=== PATIENT | female | born 1985 | race Caucasian/White ===

== ENCOUNTER 2019-05-19 12:02 | Inpatient (IN) | payer MEDICARE, OTHER ==
[2019-05-19 13:00] VITALS: BMI 16.0
--- NOTE | 2019-05-19 15:23 | HP ---
COWS - Scale Resting Pulse: 2= [place] 101-120 Sweatin=Flushed/Facial Moisture Restless Observation: 1= Difficult to Sit Still Pupil Size: 1= Pupils >than Normal Bone or Joint Aches: 2= Severe Diffuse Aches Runny Nose/ Eye Tearin= Nasal Congestion GI Upset > 30mins: 2= Nausea/Diarrhea Tremor Observation: 1= Tremor [place], Not Seen Yawning Observation: 2= >3x During Session Anxiety or Irritability: 2=Irritable/Anxious Goose Flesh Skin: 0=Smooth Skin (moderate withdrawal, getting worse) COWS Score: 16 CIWA Score - Admission Criteria OASAS Guidelines: Admission for Medically Managed Detox: Requires at least one of the followin. CIWA greater than 12 2. Seizures within the past 24 hours 3. Delirium tremens within the past 24 hours 4. Hallucinations within the past 24 hours 5. Acute intervention needed for co occurring medical disorder 6. Acute intervention needed for co occurring psychiatric disorder 7. Severe withdrawal that cannot be handled at a lower level of care (continued vomiting, continued diarrhea, abnormal vital signs) requiring intravenous medication and/or fluids 8. Patient presents the following: Acute intervention needed for co-occurring med or psych disorder (Patient homeless, significant opiate withdrawal, COWS 16) Admission Criteria Met: Admission criteria met Admitting History and Physical - Primary Care Physician PCP: frederic hsieh ([place]) - Admission Chief Complaint: Heroin and cocaine use out of control, needs help History of Present Illness: Patient is a 34 y/o female, hx of drug use in the past, never been to detox or rehab. Had been able to control drug use and even stop, but since August, she has been using cocaine and heroin daily, out of control. Now lost weight from 112 to 88 pounds since August, typically 3-10 bags per day. Was off drugs for 10 years after 2008, but now relapsed. Has no stable housing. Also has MS and fobromyalgia. Currently feels quite ill with nausea, chills, aches, agitation. Needs admit for detox, is homeless and has multiple medical comorbidities. History Source: Patient Limitations to Obtaining History: No Limitations - Past Medical History Additional Past Medical History: fibromyalgia MS, on ocrevus, last does was January, next due July, no signif. neuro deficits , neurologist Sergio Rey genital herpes on valtrex osteoporosis - Past Surgical History Past Surgical History: Yes: Tonsillectomy - Advance Directives Advance Directives: No: Living Will, Health Care Proxy, DNR, Organ Donor, Tissue Donor, MOLST - Smoking History Smoking history: Current every day smoker Have you smoked in the past 12 months: Yes Aproximately how many cigarettes per day: 20 - Alcohol/Substance Use Hx Alcohol Use: No History of Substance Use: reports: Cocaine, Heroin, Marijuana Date of Last Use: 05/19/19 - Social History Usual Living Arrangement: Yes: Other (lives with friends at times, no stable housing) Do you think of yourself as: Lennon, Lesbian or Homosexual ADL: Independent Occupation: unemployed History of Recent Travel: No Other Social History: no family supports Admission ROS S - HPI Allergies/Adverse Reactions: Allergies Allergy/AdvReac Type Severity Reaction Status Date / Time gabapentin [From Neurontin] Allergy Mild Hives Verified 05/19/19 12:51 lamotrigine [From Lamictal] Allergy Mild Hives Verified 05/19/19 12:50 - Ebola screening Have you traveled outside of the country in the last 21 days: No - Review of Systems Constitutional: See HPI, Chills, Diaphoresis, Loss of Appetite EENT: reports: See HPI Respiratory: reports: Cough. denies: SOB with Exertion, SOB at Rest Cardiac: denies: Chest Pain, Syncope GI: reports: Diarrhea, Nausea : reports: See HPI, Other (genital herpes on valtrex ppx) Musculoskeletal: reports: Back Pain, Joint Pain, Muscle Pain Integumentary: reports: Bruising (fell asleep on the toilet while on heroin and bumped forehead 3 days ago, has mild headache, no visual change or vomiting). denies: Rash Neuro: reports: Numbness, Tremors, Weakness Endocrine: reports: Excessive Sweating, Intolerance to Cold, Unexplained Weight Loss (weight loss due to excessive cocaine use for 10 months) Psychiatric: reports: Agitated, Anxious, Depressed Other Systems: Reviewed and Negative Patient History - Patient Medical History Hx Anemia: No Hx Asthma: Yes Hx Chronic Obstructive Pulmonary Disease (COPD): No Hx Cancer: No Hx Cardiac Disorders: No Hx Congestive Heart Failure: No Hx Hypertension: No Hx Hypercholesterolemia: No Hx Pacemaker: No HX Cerebrovascular Accident: No Hx Seizures: No Hx Dementia: No Hx Diabetes: No Hx Gastrointestinal Disorders: No Hx Liver Disease: No Hx Genitourinary Disorders: Yes (genital herpes) Hx Sexually Transmitted Disorders: Yes Hx Renal Disease (ESRD): No Hx Thyroid Disease: No Hx Human Immunodeficiency Virus (HIV): No (negative in past) Hx Hepatitis C: No Hx Depression: Yes Hx Suicide Attempt: No Hx Bipolar Disorder: No Hx Schizophrenia: No - Patient Surgical History Other Surgical History: tonsillectomy - PPD History Previous Implant?: Yes Documented Results: Negative w/o proof Implanted On Prior R Admission?: No PPD to be Administered?: Yes - Reproductive History Patient is a Female of Child Bearing Age (11 -55 yrs old): Yes (termination x1) Last Menstrual Period: 02/20/19 Patient : No - Smoking Cessation Smoking history: Current every day smoker Have you smoked in the past 12 months: Yes Aproximately how many cigarettes per day: 20 Initiated information on smoking cessation: Yes 'Breaking Loose' booklet given: 05/19/19 - Substance & Tx. History Hx Alcohol Use: No Hx Substance Use: Yes Substance Use Type: Cocaine, Heroin, Marijuana Hx Substance Use Treatment: No - Substances abused Heroin Substance route: Inhalation Frequency: Daily Amount used: 3-10bags/day Age of first use: 34 Date of last use: 05/18/19 Cocaine Substance route: Inhalation Frequency: Daily Amount used: 8 ball/day Age of first use: 34 Date of last use: 05/18/19 Admission Physical Exam BHS - Vital Signs Vital Signs: Vital Signs - 24 hr 05/19/19 12:56 Temperature 99.3 F Pulse Rate 111 H Respiratory 18 Rate Blood Pressure 133/77 - Physical General Appearance: Yes: Mild Distress, Thin, Irritable. No: Nourished HEENTM: Yes: CLA[place]ETTE. No: Scleral Ictenus R, Pharyngeal Erythemia, Thrush, Tonsilar Erythema Respiratory: Yes: Normal Breath Sounds. No: Labored Respiration, Accessory Muscle Use, Rhonchi, Wheezing Neck: Yes: Within Normal Limits. No: Thyroid tenderness Breast: Yes: Within Normal Limits, Axillae without masses Cardiology: Yes: Regular Rhythm, Regular Rate, S1, S2, Tachycardia, Other ( repeat heart rate down to 88) Abdominal: Yes: Normal Bowel Sounds, Increased Bowel Sounds. No: Guarding, Rebound, Tenderness Back: Yes: Within Normal Limits, Normal Inspection. No: CVA Tenderness Musculoskeletal: Yes: Within Normal Limits, Back pain Extremities: Yes: Within Normal Limits, Normal Capillary Refill, Normal Inspection, Non-Tender. 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 No: Sensory Deficit Integumentary: Yes: Normal Color, Clammy Lymphatic: No: Adenopathy Cleared for Admission [facility] - Detox or Rehab [facility] Level of Care: Medically Managed Detox Regimen/Protocol: Methadone (acute opiate withdrawal) Screened but not Admitted - Documentation of Visit Screened but not Admitted: No Breathalyzer - Breathalyzer Breathalyzer: 0 Urine Drug Screen - Test Device Lot number: [id number] Expiration date: 11/02/20 - Control Is test valid?: Yes - Results Drug screen NEGATIVE: No Urine drug screen results: TIMOTEO-Cocaine, FEN-Fentanyl, MOP-Opiates Inpatient Rehab Admission - Rehab Decision to Admit Inpatient rehab admission?: No
[2019-05-19] MEDS ORDERED: ONDANSETRON *ODT* 4 MG TABLET SL PRN (15:45)
[2019-05-19] MEDS ORDERED: MAGNESIUM HYDROX 2400MG/30ML ORAL SUSPENSION 30 ML CUP PO PRN (15:45)
[2019-05-19] MEDS ORDERED: BISMUTH SUBSALICYLATE 524 MG/30 ML UD PO PRN (15:45)
[2019-05-19] MEDS ORDERED: cloNIDine HCL 0.1 MG TABLET PO PRN (15:45)
[2019-05-19] MEDS ORDERED: MELATONIN 5 MG TABLETS PO PRN (15:45)
[2019-05-19] MEDS ORDERED: hydrOXYzine PAMOATE 25 MG CAPSULE (FP) PO PRN (15:45)
[2019-05-19] MEDS ORDERED: MAG HYDROX/AL HYDROX/SIMETH 30 ML UNIT-DOSE CUP PO PRN (15:45)
[2019-05-19] MEDS ORDERED: ACETAMINOPHEN 325 MG TABLET (FP) PO PRN ×2 (15:45)
[2019-05-19] MEDS ORDERED: IBUPROFEN 400 MG TABLET (FP) PO PRN (15:45)
[2019-05-19] MEDS ORDERED: MAGNESIUM CITRATE 300 ML BOTTLE PO PRN (15:45)
[2019-05-19] MEDS ORDERED: MENTHOL/PHENOL 1 EACH UD MM PRN (15:45)
[2019-05-19] MEDS ORDERED: METHADONE HCL 10 MG TABLET (FOR DETOX USE ONLY) PO ONE (15:45)
[2019-05-19] MEDS ORDERED: TIZANIDINE HCL 2 MG TABLET PO PRN (15:58)
[2019-05-19] MEDS: NICOTINE 21 MG/24 HOURS TOPICAL PATCH TD SCH (17:02)
[2019-05-19] MEDS: TOPIRAMATE 25 MG TABLET (FP) PO SCH (22:51)
[2019-05-19] MEDS: THIAMINE HCL 100 MG TABLET (FP) PO SCH (22:51)
[2019-05-20] MEDS: METHOCARBAMOL 500 MG TABLET PO PRN ×2 (06:44→19:03)
[2019-05-20] MEDS ORDERED: METHADONE HCL 5 MG TABLET (FOR DETOX USE ONLY) PO ONE (10:00)
[2019-05-20 10:16] LABS: HEMATOCRIT 35.4 % (32.4-45.2); HEMOGLOBIN 11.9 GM/dL (10.7-15.3); MCH 32.8 pg (25.7-33.7); MCHC 33.7 g/dl (32.0-36.0); MEAN CELL VOLUME 97.2 fl (80-96); MEAN PLT VOLUME 9.2 fl (7.5-11.1); PLATELET COUNT 210 K/MM3 (134-434); RBC 3.64 M/mm3 (3.60-5.2); RDW 13.3 % (11.6-15.6); WHITE BLOOD COUNT 7.2 K/mm3 (4.0-10.0)
[2019-05-20] MEDS: NICOTINE 21 MG/24 HOURS TOPICAL PATCH TD SCH (10:17)
[2019-05-20] MEDS: PRENATAL VITAMINS W/ FOLIC ACID TABLET (FP) PO SCH (10:17)
[2019-05-20] MEDS: valACYclovir HCL 500 MG TABLET (FP) PO SCH (10:17)
[2019-05-20 10:40] LABS: ALBUMIN 2.9 g/dl (3.4-5.0); BILIRUBIN,TOTAL 0.2 mg/dL (0.2-1); BLOOD UREA NITROGEN 8.1 mg/dL (7-18); CALCIUM 7.9 mg/dL (8.5-10.1); CREATININE 0.5 mg/dL (0.55-1.3); POTASSIUM 3.8 mmol/L (3.5-5.1); TOT PROT 5.1 g/dl (6.4-8.2)
--- NOTE | 2019-05-20 14:21 | EKG ---
Test Reason : Blood Pressure : / mmHG Vent. Rate : 090 BPM Atrial Rate : 090 BPM P-R Int : 118 ms QRS Dur : 078 ms QT Int : 344 ms P-R-T Axes : 083 074 068 degrees QTc Int : 420 ms NORMAL SINUS RHYTHM NORMAL ECG Confirmed by MD JONATHAN, GEN ([id number]) on 05/20/2019 2:20:51 PM Referred By: Confirmed By:GEN CASTILLO MD
--- NOTE | 2019-05-20 16:33 | PN ---
BHS COWS - Scale Resting Pulse: 1= [place] 81-100 Sweatin= Chills/Flushing Restless Observation: 1= Difficult to Sit Still Pupil Size: 0= Normal to Room Light Bone or Joint Aches: 1= Mild Discomfort Runny Nose/ Eye Tearin= Runny Nose/Eyes GI Upset > 30mins: 2= Nausea/Diarrhea Tremor Observation of Outstretched Hands: 2= Slight Tremor Visible Yawning Observation: 0= None Anxiety or Irritability: 2=Irritable/Anxious Goose Flesh Skin: 0=Smooth Skin COWS Score: 12 S Progress Note (SOAP) Subjective: Feels ok, medication is working ok Objective: 05/20/19 16:28 Last Vital Signs Temp Pulse Resp BP Pulse Ox 98.1 F 99 H 16 115/70 05/20/19 12:31 05/20/19 12:31 05/20/19 12:31 05/20/19 12:31 Laboratory Tests 05/19/19 05/20/19 05/20/19 14:38 07:20 07:20 WBC 7.2 RBC 3.64 Hgb 11.9 Hct 35.4 MCV 97.2 H MCH 32.8 MCHC 33.7 RDW 13.3 Plt Count 210 MPV 9.2 Sodium 143 Potassium 3.8 Chloride 113 H Carbon Dioxide 25 Anion Gap 6 L BUN 8.1 Creatinine 0.5 L Est GFR (CKD-EPI)AfAm 146.35 Est GFR (CKD-EPI)NonAf 126.27 Random Glucose 124 H Calcium 7.9 L Total Bilirubin 0.2 AST 13 L ALT 20 Alkaline Phosphatase 47 Total Protein 5.1 L Albumin 2.9 L POC Urine HCG, Qual Negative RPR Titer 05/20/19 07:20 WBC RBC Hgb Hct MCV MCH MCHC RDW Plt Count MPV Sodium Potassium Chloride Carbon Dioxide Anion Gap BUN Creatinine Est GFR (CKD-EPI)AfAm Est GFR (CKD-EPI)NonAf Random Glucose Calcium Total Bilirubin AST ALT Alkaline Phosphatase Total Protein Albumin POC Urine HCG, Qual RPR Titer Nonreactive Labs reviewed: glucose 124 (high), Ca 7.9 (low), albumin/total protein (low) Assessment: 05/20/19 16:30 Withdrawal sxs Noted with hyperglycemia, hypocalcemia and hypoalbuminemia/low total protein Plan: Continue detox Encouraged PO water intake Hyperglycemia: denies DM, repeat fasting glucose, check A1c Hypocalcemia: start calcium carbonate 650mg PO bid x 3 days Hypoalbuminemia/low total protein: encouraged diet, increased protein intake
[2019-05-20] MEDS: TOPIRAMATE 25 MG TABLET (FP) PO SCH (22:21)
[2019-05-20] MEDS: CALCIUM CARBONATE 650 MG TABLET PO SCH (22:21)
[2019-05-20] MEDS: THIAMINE HCL 100 MG TABLET (FP) PO SCH (22:21)
[2019-05-21 08:19] VITALS: TEMP 98.2
[2019-05-21] MEDS ORDERED: METHADONE HCL 10 MG TABLET (FOR DETOX USE ONLY) PO ONE (10:00)
[2019-05-21] MEDS: NICOTINE 21 MG/24 HOURS TOPICAL PATCH TD SCH (10:43)
[2019-05-21] MEDS: PRENATAL VITAMINS W/ FOLIC ACID TABLET (FP) PO SCH (10:43)
[2019-05-21] MEDS: valACYclovir HCL 500 MG TABLET (FP) PO SCH (10:43)
[2019-05-21 11:35] VITALS: BP 108/65; PULSE 94
--- NOTE | 2019-05-21 11:37 | PN ---
BHS COWS - Scale Resting Pulse: 1= [place] 81-100 Sweatin= No chills or Flushing Restless Observation: 1= Difficult to Sit Still Pupil Size: 0= Normal to Room Light Bone or Joint Aches: 2= Severe Diffuse Aches Runny Nose/ Eye Tearin= None GI Upset > 30mins: 0= None Tremor Observation of Outstretched Hands: 0= None Yawning Observation: 0= None Anxiety or Irritability: 0= None Goose Flesh Skin: 0=Smooth Skin COWS Score: 4 BHS Progress Note (SOAP) Subjective: chronic back pain feeling so much better I want to leave today. Objective: 05/21/19 11:36 Vital Signs Temperature 98.2 F 05/21/19 09:05 Pulse Rate 94 H 05/21/19 09:05 Respiratory Rate 18 05/21/19 09:05 Blood Pressure 108/65 05/21/19 09:05 O2 Sat by Pulse Oximetry (%) Laboratory Tests 05/19/19 05/20/19 05/20/19 14:38 07:20 07:20 WBC 7.2 RBC 3.64 Hgb 11.9 Hct 35.4 MCV 97.2 H MCH 32.8 MCHC 33.7 RDW 13.3 Plt Count 210 MPV 9.2 Sodium 143 Potassium 3.8 Chloride 113 H Carbon Dioxide 25 Anion Gap 6 L BUN 8.1 Creatinine 0.5 L Est GFR (CKD-EPI)AfAm 146.35 Est GFR (CKD-EPI)NonAf 126.27 Random Glucose 124 H Calcium 7.9 L Total Bilirubin 0.2 AST 13 L ALT 20 Alkaline Phosphatase 47 Total Protein 5.1 L Albumin 2.9 L POC Urine HCG, Qual Negative RPR Titer 05/20/19 07:20 WBC RBC Hgb Hct MCV MCH MCHC RDW Plt Count MPV Sodium Potassium Chloride Carbon Dioxide Anion Gap BUN Creatinine Est GFR (CKD-EPI)AfAm Est GFR (CKD-EPI)NonAf Random Glucose Calcium Total Bilirubin AST ALT Alkaline Phosphatase Total Protein Albumin POC Urine HCG, Qual RPR Titer Nonreactive aaox3 ambulating no acute distress Assessment: 05/21/19 11:36 mild to no s/s of withdrawals Plan: complete with final dose of methadone d/c today.
--- NOTE | 2019-05-21 11:39 | DS ---
[facility] Detox Discharge Summary Admission Date: 05/19/19 Discharge Date: 05/21/19 - History Present History: Opioid Dependence - Physical Exam Results Vital Signs: Vital Signs Temperature 98.2 F 05/21/19 09:05 Pulse Rate 94 H 05/21/19 09:05 Respiratory Rate 18 05/21/19 09:05 Blood Pressure 108/65 05/21/19 09:05 O2 Sat by Pulse Oximetry (%) Pertinent Admission Physical Exam Findings: Vital Signs Temperature 98.2 F 05/21/19 09:05 Pulse Rate 94 H 05/21/19 09:05 Respiratory Rate 18 05/21/19 09:05 Blood Pressure 108/65 05/21/19 09:05 O2 Sat by Pulse Oximetry (%) Laboratory Tests 05/19/19 05/20/19 05/20/19 14:38 07:20 07:20 WBC 7.2 RBC 3.64 Hgb 11.9 Hct 35.4 MCV 97.2 H MCH 32.8 MCHC 33.7 RDW 13.3 Plt Count 210 MPV 9.2 Sodium 143 Potassium 3.8 Chloride 113 H Carbon Dioxide 25 Anion Gap 6 L BUN 8.1 Creatinine 0.5 L Est GFR (CKD-EPI)AfAm 146.35 Est GFR (CKD-EPI)NonAf 126.27 Random Glucose 124 H Calcium 7.9 L Total Bilirubin 0.2 AST 13 L ALT 20 Alkaline Phosphatase 47 Total Protein 5.1 L Albumin 2.9 L POC Urine HCG, Qual Negative RPR Titer 05/20/19 07:20 WBC RBC Hgb Hct MCV MCH MCHC RDW Plt Count MPV Sodium Potassium Chloride Carbon Dioxide Anion Gap BUN Creatinine Est GFR (CKD-EPI)AfAm Est GFR (CKD-EPI)NonAf Random Glucose Calcium Total Bilirubin AST ALT Alkaline Phosphatase Total Protein Albumin POC Urine HCG, Qual RPR Titer Nonreactive aaox3 ambulating no acute distress skin intact lungs CTA - Treatment Hospital Course: Detox Protocol Followed, Detoxed Safely, Responded well, Discharged Condition Good, Rehab Referral Accepted - Medication Discharge Medications: Ambulatory Orders Azithromycin 250 mg PO DAILY 05/19/19 Topiramate [Topamax] 50 mg PO HS 05/19/19 Valacyclovir HCl [Valtrex] 500 mg PO DAILY 05/19/19 - Diagnosis (1) Opioid dependence with withdrawal Current Visit: Yes Status: Chronic - AMA Did Patient Leave Against Medical Advice: No
[2019-05-21] MEDS: CALCIUM CARBONATE 650 MG TABLET PO SCH (11:50)
[2019-05-22] MEDS ORDERED: METHADONE HCL 5 MG TABLET (FOR DETOX USE ONLY) PO ONE (06:00)
== END 2019-05-21 13:08 | disposition home or self-care (01) | DRG 897 ==
LOC: YASAS 12:02 → Y3N 15:52 → Y6N 16:05
PROVIDERS: ADMIT Allergy & Immunology; ATTEND Allergy & Immunology
PROC: HZ2ZZZZ Detoxification Services for Substance Abuse Treatment (ICD-10-PCS; principal; 2019-05-19)
DX: F11.23 Opioid dependence with withdrawal (principal); F14.20 Cocaine dependence, uncomplicated; F17.210 Nicotine dependence, cigarettes, uncomplicated; R00.0 Tachycardia, unspecified; J45.909 Unspecified asthma, uncomplicated; M54.5 Low back pain; G89.29 Other chronic pain; R73.9 Hyperglycemia, unspecified; R77.0 Abnormality of albumin; E83.51 Hypocalcemia; E88.09 Other disorders of plasma-protein metabolism, not elsewhere classified; G35 Multiple sclerosis; M79.7 Fibromyalgia; Z87.42 Personal history of other diseases of the female genital tract; Z88.8 Allergy status to other drugs, medicaments and biological substances; Z59.0 Homelessness
CPT/HCPCS: 36415; 80053; 81025; 85027; 86593; 93005; 93010; J0735